=== PATIENT | male | born 1945 | race Caucasian/White ===

== ENCOUNTER 2020-04-14 08:44 | Day surgery (SDC) | payer OTHER ==
[~2020-04-14] VITALS: Ht 180.3 cm; Wt 93.9 kg
[~2020-04-14 08:44] MED LIST: CEFAZOLIN SOD 1 GM in D5W 50 ML IV ONE
[2020-04-14] MEDS ORDERED: fentaNYL CITRATE/PF 100 MCG/2 ML AMP IVP PRN ×2 (09:00)
[2020-04-14] MEDS ORDERED: ONDANSETRON HCL 4 MG/2 ML VIAL IVP PRN (09:00)
[2020-04-14] MEDS ORDERED: D5/0.45 NS 1,000 ML IV SCH (13:27)
[2020-04-14] MEDS ORDERED: HYDROcodone/ACETAMIN 5-325 MG TAB (NORCO/ VICODIN) PO PRN ×2 (13:30)
[2020-04-14] MEDS ORDERED: LR 1,000 ML IV.SOLN IV ONE (13:38)
[2020-04-14] MEDS ORDERED: MIDAZOLAM HCL 5 MG/ML VIAL (VERSED) IV ONE (13:38)
[2020-04-14] MEDS ORDERED: fentaNYL CITRATE/PF 100 MCG/2 ML AMP ONE (13:38)
[2020-04-14] MEDS ORDERED: PROPOFOL 200MG/ 20ML VIAL (DIPRIVAN) IV ONE (13:38)
[2020-04-14] MEDS ORDERED: NS 50 ML BAG IV ONE (13:38)
[2020-04-14] MEDS ORDERED: NS IRRIG SOLN 1000 ML IR ONE (13:38)
[2020-04-14] MEDS ORDERED: SEVOFLURANE 15 MIN GAS INH ONE (13:38)
[2020-04-14] MEDS ORDERED: LABETALOL 100 MG/ 20ML VIAL ONE (13:38)
[2020-04-14 15:15] VITALS: BP_SYST 116
== END 2020-04-14 16:10 | disposition home or self-care (01) ==
LOC: SDS 08:44 → EDSTATUS 10:25 → SDS 16:10
PROVIDERS: ATTEND Colon & Rectal Surgery
DX: C43.59 Malignant melanoma of other part of trunk (principal); R59.0 Localized enlarged lymph nodes; I10 Essential (primary) hypertension; E11.9 Type 2 diabetes mellitus without complications; Z79.899 Other long term (current) drug therapy
CPT/HCPCS: 11606; 12032; 36415; 38525; 78195; 82962; 84132; 88305; 88307; A9541; J0690; J2250; J2704; J3010; J3490; J7060; J7120; 88341; 88342